=== PATIENT | female | born 1945 | race Caucasian/White ===

== ENCOUNTER 2018-06-13 15:45 | Inpatient (IN) | payer MEDICARE, MEDICAID ==
[~2018-06-13] VITALS: Ht 152.4 cm; Wt 118.8 kg
--- NOTE | 2018-06-13 15:45 | NUR ---
TRIAGE NOTE: BIB [facility]-c/o flu like sx, abd pain, SOB x2 days. Pt also states she has not had a BM or passed more than a little urine in 2 days. Pt with c/o left abdominal pain, increased leg swelling, and no urine/stool x 2 days. Pt a very poor historian, family member at bedside with little more information. Pt states she was just released from [facility] last week, Dr. Huizar to attempt to get records from [facility].
--- NOTE | 2018-06-13 15:48 | NUR ---
Dr. Huizar at bedside to evaluate pt. Pt placed on all monitors, EDT at bedside for EKG.
--- NOTE | 2018-06-13 16:05 | NUR ---
Bladder scan: 452mL
[2018-06-13] MEDS ORDERED: SODIUM CHLORIDE FLUSH 10ML SYR IVF ONE (16:30)
--- NOTE | 2018-06-13 16:32 | NUR ---
Purewick placed to attempt to relieve pt's feeling/need to urinate. Pt instructed on use of purewick and verbalized understanding, family at bedside also understands and agrees to reinforce information with pt.
[2018-06-13 16:34] LABS: INTERNATIONAL NORMALIZED RATIO 1.2 (0.93-1.1); PROTHROMBIN TIME 12.5 Seconds (9.6-11.5)
[2018-06-13 16:35] LABS: ALANINE AMINOTRANSFERASE 20 U/L (12-78); ANION GAP 8 mmol/L (5-15); CALCIUM 8.8 mg/dL (8.5-10.1); CHLORIDE 97 mmol/L (98-107); CREATININE 1.14 mg/dL (0.55-1.02)
[2018-06-13 16:38] LABS: BASOPHILS # (AUTO) 0.02 x10^3/uL (0-0.1); BASOPHILS % (AUTO) 0 % (0-1); EOSINOPHILS # (AUTO) 0.09 x10^3/uL (0-0.4); EOSINOPHILS % (AUTO) 1 % (1-7); LYMPHOCYTES # (AUTO) 0.85 x10^3/uL (1-3.4); LYMPHOCYTES % (AUTO) 10 % (22-44); MD NO; MEAN CORPUSCULAR HEMOGLOBIN 29.4 pg (27.0-34.8); MEAN CORPUSCULAR HGB CONC 32.6 g/dL (32.4-35.8); MEAN CORPUSCULAR VOLUME 90.2 fL (80-100); MEAN PLATELET VOLUME 8.5 fL (7.4-10.4); MONOCYTES # (AUTO) 0.68 x10^3/uL (0.2-0.8); MONOCYTES % (AUTO) 8 % (2-9); NEUTROPHILS # (AUTO) 7.35 x10^3/uL (1.8-6.8); NEUTROPHILS % (AUTO) 82 % (42-75); PLATELET COUNT 235 x10^3/uL (130-400); RED BLOOD COUNT 3.13 x10^6/uL (3.82-5.3); RED CELL DISTRIBUTION WIDTH 15.1 % (9.6-15.2)
[2018-06-13 16:39] LABS: ALKALINE PHOSPHATASE 97 U/L (45-117); BILIRUBIN,TOTAL 0.8 mg/dL (0.2-1.0); TOTAL PROTEIN 7.7 g/dL (6.4-8.2); TROPONIN I < 0.015 ng/mL (0.000-0.045)
--- NOTE | 2018-06-13 17:09 | NUR ---
Straight cath performed for urine sample, pt tolerated procedure well. Pt relieved of 550mL urine at that time.
[2018-06-13] MEDS ORDERED: FUROSEMIDE 20 MG/2 ML IV ONE (17:30)
[2018-06-13 17:31] LABS: MICROSCOPIC NOT IND
[2018-06-13] MEDS ORDERED: FUROSEMIDE 20 MG/2 ML ONE (17:34)
[2018-06-13 17:47] LABS: CULTURE INDICATED? NO
--- NOTE | 2018-06-13 18:02 | NUR ---
Pt back to room from imaging.
--- NOTE | 2018-06-13 18:14 | NUR ---
Pt medicated per MAR. VSS
--- NOTE | 2018-06-13 18:57 | NUR ---
Pt up to bathroom with 1 person assist.
[2018-06-13] MEDS ORDERED: SODIUM CHLORIDE FLUSH 10ML SYR IVF PRN (19:00)
--- NOTE | 2018-06-13 19:05 | NUR ---
Pt back to room from bathroom, states unable to have a BM but states she had a lot of urine.
--- NOTE | 2018-06-13 19:10 | NUR ---
Dr. Wood at bedside to evaluate pt for admission.
--- NOTE | 2018-06-13 19:52 | NUR ---
Telephone SBAR report called to Damaso GASTON. Pt and family made aware of new room assignment.
[2018-06-13] MEDS ORDERED: ONDANSETRON 2MG/ML, 2ML IVPush PRN (20:30)
[2018-06-13] MEDS ORDERED: BISACODYL 10 MG SUPP PR PRN (20:30)
[2018-06-13] MEDS ORDERED: hydrALAzine 20 MG/ML, 1ML IVPush PRN (20:30)
[2018-06-13] MEDS ORDERED: LABETALOL 5MG/ML, 20ML IVPush PRN (20:30)
[2018-06-13] MEDS ORDERED: POLYETHYLENE GLYCOL 17 GM PACKET PO PRN (20:30)
[2018-06-13] MEDS ORDERED: ONDANSETRON ODT 4 MG PO PRN (20:30)
--- NOTE | 2018-06-13 20:48 | NUR ---
Telephone SBAR report called to Blanca GASTON. Pt and family made aware of change.
[2018-06-13 20:54] LABS: THYROID STIMULATING HORMONE 4.22 mIU/L (0.358-3.740)
[2018-06-13] MEDS ORDERED: ENOXAPARIN 30 MG/0.3 ML SQ SCH (21:00)
[2018-06-13 21:04] LABS: HEMOGLOBIN A1C 5.4 % (4.2-6.3)
[2018-06-13] MEDS ORDERED: FUROSEMIDE 40 MG/4 ML IV ONE (22:00)
[2018-06-13] MEDS: LACTULOSE 10 GM/15 ML UDC PO SCH (22:01)
[2018-06-13] MEDS: ACETAMINOPHEN 325 MG TABLET PO PRN (23:24)
[2018-06-13 23:55] LABS: % IRON SATURATION 5 % (20-55); IRON LEVEL 25 mcg/dL (50-170); TOTAL IRON BINDING CAPACITY 462 mcg/dL (250-450)
[2018-06-14 00:41] VITALS: BP 102/62
[2018-06-14] MEDS ORDERED: HYDROcodone/APAP 5/325 TABLET PO ONE (01:30)
[2018-06-14] MEDS ORDERED: ALBUTEROL SULFATE 2.5 MG/3 ML NPPB PRN (02:00)
[2018-06-14 05:07] LABS: BASOPHILS # (AUTO) 0.02 x10^3/uL (0-0.1); BASOPHILS % (AUTO) 0 % (0-1); EOSINOPHILS # (AUTO) 0.24 x10^3/uL (0-0.4); EOSINOPHILS % (AUTO) 3 % (1-7); LYMPHOCYTES # (AUTO) 0.95 x10^3/uL (1-3.4); LYMPHOCYTES % (AUTO) 12 % (22-44); MD NO; MEAN CORPUSCULAR HGB CONC 34.4 g/dL (32.4-35.8); MEAN PLATELET VOLUME 8.2 fL (7.4-10.4); MONOCYTES # (AUTO) 0.75 x10^3/uL (0.2-0.8); MONOCYTES % (AUTO) 9 % (2-9); NEUTROPHILS # (AUTO) 6.26 x10^3/uL (1.8-6.8); NEUTROPHILS % (AUTO) 76 % (42-75); PLATELET COUNT 220 x10^3/uL (130-400); RED BLOOD COUNT 2.91 x10^6/uL (3.82-5.3); RED CELL DISTRIBUTION WIDTH 15.1 % (9.6-15.2)
[2018-06-14 05:19] LABS: ANION GAP 5 mmol/L (5-15); CALCIUM 8.4 mg/dL (8.5-10.1); CHLORIDE 103 mmol/L (98-107); CREATININE 1.04 mg/dL (0.55-1.02)
[2018-06-14] MEDS: DOCUSATE 100 MG CAPSULE PO PRN ×2 (05:42→23:34)
[2018-06-14] MEDS: LEVOTHYROXINE 50 MCG TABLET PO SCH (05:43)
[2018-06-14] MEDS ORDERED: POTASSIUM CHLORIDE 20 MEQ TAB.ER.PRT PO ONE (06:30)
[2018-06-14 06:48] VITALS: BP 100/62
[2018-06-14] MEDS: LACTULOSE 10 GM/15 ML UDC PO SCH ×2 (09:16→21:27)
[2018-06-14] MEDS: GEMFIBROZIL 600 MG TABLET PO SCH ×2 (09:16→21:28)
[2018-06-14] MEDS: FUROSEMIDE 40 MG/4 ML IV SCH (09:16)
[2018-06-14] MEDS: ACETAMINOPHEN 325 MG TABLET PO PRN (09:16)
[2018-06-14] MEDS: LISINOPRIL 5 MG TABLET PO SCH (09:16)
[2018-06-14] MEDS: DILTIAZEM 120 MG CAP.ER.24H PO SCH (09:16)
[2018-06-14] MEDS: POTASSIUM CHLORIDE 20 MEQ TAB.ER.PRT PO SCH (09:17)
[2018-06-14] MEDS: SENNA/DOCUSATE TABLET PO SCH (09:17)
[2018-06-14 13:10] VITALS: BP 129/67
[2018-06-14] MEDS: HYDROcodone/APAP 5/325 TABLET PO PRN ×2 (15:57→21:28)
[2018-06-14] MEDS ORDERED: RIVAROXABAN 15 MG TABLET PO SCH (17:00)
[2018-06-14] MEDS ORDERED: DIPHENHYDRAMINE 25 MG CAPSULE PO PRN (20:00)
[2018-06-14 20:13] VITALS: BP 105/63
[2018-06-14] MEDS ORDERED: FUROSEMIDE 20 MG/2 ML IV ONE (23:00)
[2018-06-14] MEDS ORDERED: TRAZODONE 50MG TABLET ONE (23:29)
[2018-06-14] MEDS ORDERED: IBUPROFEN 600 MG TABLET ONE (23:29)
[2018-06-14] MEDS ORDERED: TRAZODONE 50MG TABLET PO PRN (23:30)
[2018-06-14 23:32] VITALS: BP 113/71
[2018-06-14] MEDS: IBUPROFEN 200 MG TABLET PO PRN (23:34)
[2018-06-15 01:20] VITALS: BP 119/73
[2018-06-15] MEDS: HYDROcodone/APAP 5/325 TABLET PO PRN ×3 (01:30→09:16)
[2018-06-15] MEDS: LEVOTHYROXINE 50 MCG TABLET PO SCH (05:20)
[2018-06-15 05:37] LABS: BASOPHILS # (AUTO) 0.01 x10^3/uL (0-0.1); BASOPHILS % (AUTO) 0 % (0-1); EOSINOPHILS # (AUTO) 0.17 x10^3/uL (0-0.4); EOSINOPHILS % (AUTO) 2 % (1-7); LYMPHOCYTES % (AUTO) 12 % (22-44); MD NO; MEAN CORPUSCULAR HGB CONC 34.2 g/dL (32.4-35.8); MEAN CORPUSCULAR VOLUME 90.5 fL (80-100); MEAN PLATELET VOLUME 8.5 fL (7.4-10.4); MONOCYTES # (AUTO) 0.72 x10^3/uL (0.2-0.8); MONOCYTES % (AUTO) 10 % (2-9); NEUTROPHILS # (AUTO) 5.63 x10^3/uL (1.8-6.8); NEUTROPHILS % (AUTO) 76 % (42-75); PLATELET COUNT 216 x10^3/uL (130-400); RED BLOOD COUNT 2.86 x10^6/uL (3.82-5.3); RED CELL DISTRIBUTION WIDTH 15.3 % (9.6-15.2)
[2018-06-15 05:45] LABS: ALBUMIN 3.5 g/dL (3.4-5.0); ANION GAP 7 mmol/L (5-15); CALCIUM 8.5 mg/dL (8.5-10.1); CHLORIDE 107 mmol/L (98-107); CREATININE 0.74 mg/dL (0.55-1.02)
[2018-06-15 06:39] VITALS: BP 118/63
[2018-06-15] MEDS: FUROSEMIDE 40 MG/4 ML IV SCH (09:16)
[2018-06-15] MEDS: LACTULOSE 10 GM/15 ML UDC PO SCH (09:17)
[2018-06-15] MEDS: GEMFIBROZIL 600 MG TABLET PO SCH (09:17)
[2018-06-15] MEDS: LISINOPRIL 5 MG TABLET PO SCH (09:17)
[2018-06-15] MEDS: SENNA/DOCUSATE TABLET PO SCH (09:17)
[2018-06-15] MEDS: POTASSIUM CHLORIDE 20 MEQ TAB.ER.PRT PO SCH (09:17)
[2018-06-15] MEDS: DILTIAZEM 120 MG CAP.ER.24H PO SCH (09:17)
[2018-06-15] MEDS ORDERED: TRIAMCINOLONE OINT 0.1%, 15GM TP SCH (11:00)
[2018-06-15] MEDS: IBUPROFEN 200 MG TABLET PO PRN (11:26)
[2018-06-15 12:03] VITALS: BP 120/64
[2018-06-15] MEDS ORDERED: TRIA15OI TP (14:19)
[2018-06-15] MEDS ORDERED: TORS20TA2 PO (14:19)
== END 2018-06-15 17:26 | disposition home or self-care (01) | DRG 291 ==
LOC: ED 18:31 → EDIP 19:11 → 4WST 20:57
PROVIDERS: ADMIT Family Medicine; ATTEND Family Medicine
PROC: 0T9B70Z Drainage of Bladder with Drainage Device, Via Natural or Artificial Opening (ICD-10-PCS; principal; 2018-06-13)
DX: I11.0 Hypertensive heart disease with heart failure (principal); I50.31 Acute diastolic (congestive) heart failure; E87.1 Hypo-osmolality and hyponatremia; I27.29 Other secondary pulmonary hypertension; I48.91 Unspecified atrial fibrillation; I25.10 Atherosclerotic heart disease of native coronary artery without angina pectoris; G47.33 Obstructive sleep apnea (adult) (pediatric); G24.9 Dystonia, unspecified; I08.3 Combined rheumatic disorders of mitral, aortic and tricuspid valves; E03.9 Hypothyroidism, unspecified; G89.29 Other chronic pain; E78.5 Hyperlipidemia, unspecified; E11.9 Type 2 diabetes mellitus without complications; D50.9 Iron deficiency anemia, unspecified; K59.00 Constipation, unspecified; J45.909 Unspecified asthma, uncomplicated; I50.82 Biventricular heart failure; D72.819 Decreased white blood cell count, unspecified; G62.9 Polyneuropathy, unspecified; Z79.899 Other long term (current) drug therapy; Z79.84 Long term (current) use of oral hypoglycemic drugs; Z79.01 Long term (current) use of anticoagulants; Z90.710 Acquired absence of both cervix and uterus; Z90.721 Acquired absence of ovaries, unilateral; Z90.49 Acquired absence of other specified parts of digestive tract; I25.2 Old myocardial infarction
CPT/HCPCS: 36415; 71045; 74176; 80048; 80053; 81003; 82040; 83036; 83540; 83550; 83735; 83880; 84443; 84484; 85025; 85610; 85730; 86140; 87040; 93005; 94640; 96374; G0378; J1940; J7613; Q0163